=== PATIENT | female | born 1950 | race Caucasian/White ===

== ENCOUNTER 2018-01-27 09:43 | Day surgery (SDC) | payer OTHER, SELFPAY ==
[2018-01-18 15:59] VITALS: BMI 21.6
[2018-01-27 10:25] VITALS: BP 107/88; PULSE 80; RESP 18; TEMP 36.6; O2SAT 98
[2018-01-27 12:01] VITALS: O2SAT 99
--- NOTE | 2018-01-27 12:06 | HMH.PROC ---
[facility] Procedure Note Procedure Note:: Colonoscopy Procedure Report: Colonoscopy with submucosal injection of Eleview, snare cautery and cold snare polypectomy and Endo Clip placement Endoscopist: Jonnathan Pearson II, MD Referring physician: Lai Veliz MD Date of Procedure: January 27, 2018 Equipment: Olympus 180 variable stiffness pediatric colonoscope Sedation: MAC sedation Indication: Mrs. Arndt is a 67-year-old female who is here for initial screening colonoscopy. She does think that her maternal grandmother may have had colon cancer. She reports no abdominal pain, weight loss, change in her bowel habits or rectal bleeding. Procedure: Prior to the procedure, a history and physical exam was performed, and patient's medications and allergies were reviewed. The risks, benefits and alternatives of the sedation and procedure were discussed with the patient. All questions were answered and informed consent was obtained. The patient was brought to the procedure room. Patient identification and proposed procedure were verified by the physician and the nurse. The patient was placed in a left lateral decubitus position and the scope was passed under direct vision. Throughout the procedure, the patient's blood pressure, pulse, and oxygen saturations were monitored continuously. The colonoscopy was accomplished without difficulty. The patient tolerated the procedure well. Findings: On digital rectal examination there was normal rectal tone. There were no external hemorrhoids. The colonoscope was introduced through the anal canal to the rectum and advanced to the cecum. The ileocecal valve and appendiceal orifice were identified. The scope was advanced a short distance into the ileum which appeared grossly normal. The scope was then withdrawn into the colon. Within the cecum there was an 19-20 mm wider based polyp that was at the base of the cecum encompassing a very small portion of the appendiceal orifice. This was injected submucosally with 10 mL of Eleview to raise the polyp. Next, a 15 mm captivator snare was used to completely excise this large polyp via snare cautery. The edges of the post polypectomy site were coated with soft coagulation. 2 endoclips were placed over the post polypectomy site to provide closure. There was a second 6-7 mm polyp in the ascending colon removed via cold snare polypectomy. The remaining ascending, transverse, descending, sigmoid and rectum were grossly normal. There were no mucosal abnormalities identified. Upon retroflexion within the rectum there were grade 1-2 internal hemorrhoids with active cryptitis. Impression: 1. Large cecal polyp (19-20 mm) status post removal 2. Diminutive ascending polyp removed 3. Grade 1-2 internal hemorrhoids with active cryptitis Plan: I will follow up the polyp histology. The cecal polyp appears to be a more advanced adenomatous colon polyp. I will explain and follow-up pathology/histology which should help to determine surveillance interval. I would encourage fiber bulk supplementation on a maintenance basis.
[2018-01-27 12:40] VITALS: BP 74/42; PULSE 72; RESP 16; TEMP 36.7; O2SAT 92
--- NOTE | 2018-01-27 12:41 | P.PCN_ITS ---
[facility] Procedure Note Procedure Note:: Colonoscopy Procedure Report: Colonoscopy with submucosal injection of Eleview, snare cautery and cold snare polypectomy and Endo Clip placement Endoscopist: Jonnathan Pearson II, MD Referring physician: Lai Veliz MD Date of Procedure: January 27, 2018 Equipment: Olympus 180 variable stiffness pediatric colonoscope Sedation: MAC sedation Indication: Mrs. Arndt is a 67-year-old female who is here for initial screening colonoscopy. She does think that her maternal grandmother may have had colon cancer. She reports no abdominal pain, weight loss, change in her bowel habits or rectal bleeding. Procedure: Prior to the procedure, a history and physical exam was performed, and patient' s medications and allergies were reviewed. The risks, benefits and alternatives of the sedation and procedure were discussed with the patient. All questions were answered and informed consent was obtained. The patient was brought to the procedure room. Patient identification and proposed procedure were verified by the physician and the nurse. The patient was placed in a left lateral decubitus position and the scope was passed under direct vision. Throughout the procedure, the patient's blood pressure, pulse, and oxygen saturations were monitored continuously. The colonoscopy was accomplished without difficulty. The patient tolerated the procedure well. Findings: On digital rectal examination there was normal rectal tone. There were no external hemorrhoids. The colonoscope was introduced through the anal canal to the rectum and advanced to the cecum. The ileocecal valve and appendiceal orifice were identified. The scope was advanced a short distance into the ileum which appeared grossly normal. The scope was then withdrawn into the colon. Within the cecum there was an 19-20 mm wider based polyp that was at the base of the cecum encompassing a very small portion of the appendiceal orifice. This was injected submucosally with 10 mL of Eleview to raise the polyp. Next, a 15 mm captivator snare was used to completely excise this large polyp via snare cautery. The edges of the post polypectomy site were coated with soft coagulation. 2 endoclips were placed over the post polypectomy site to provide closure. There was a second 6-7 mm polyp in the ascending colon removed via cold snare polypectomy. The remaining ascending, transverse, descending, sigmoid and rectum were grossly normal. There were no mucosal abnormalities identified. Upon retroflexion within the rectum there were grade 1 -2 internal hemorrhoids with active cryptitis. Impression: 1. Large cecal polyp (19-20 mm) status post removal 2. Diminutive ascending polyp removed 3. Grade 1-2 internal hemorrhoids with active cryptitis Plan: I will follow up the polyp histology. The cecal polyp appears to be a more advanced adenomatous colon polyp. I will explain and follow-up pathology/ histology which should help to determine surveillance interval. I would encourage fiber bulk supplementation on a maintenance basis.
[2018-01-27 12:55] VITALS: BP 82/53; PULSE 80; O2SAT 95
[2018-01-27 13:21] VITALS: BP 93/60; PULSE 75; O2SAT 97
--- NOTE | 2018-01-27 15:03 | P.PN_ITS ---
[facility] Anesthesia Checklist - Structural Data Admitted From: Home Planned Operative Procedure/s: colonoscopy Consent for Planned Operative Procedure(s) Verified: Yes - Airway Assessment C-Spine Mobility Assessed: Yes TMJ Mobility Assessed: Yes Dentition: Good Dentition - Neurological Assessment Level of Consciousness: Awake, Alert - Anesthesia Plan Anesthesia Risk discussed: Yes Anesthesia Plan: Verified ASA Class: II Anesthesia Type: MAC [facility] Anesthesia HX I have reviewed the patient's past medical history: Yes Medical History: Reports:: Hyperlipidemia, Hypertension Denies:: Diabetes Mellitus Type 1, Diabetes Mellitus Type 2, Internal Pacemaker, Lung Disease, Seizures Other Surgeries: No: Pacemaker
== END 2018-01-27 13:21 | disposition home or self-care (01) ==
LOC: OUTP 09:45
PROVIDERS: PCP Internal Medicine; Visit Provider Internal Medicine Gastroenterology
PROC: 0DJD8ZZ Inspection of Lower Intestinal Tract, Via Natural or Artificial Opening Endoscopic (ICD-10-PCS; CPT 45378; principal; 2018-01-27 11:00)
DX: Z12.11 Encounter for screening for malignant neoplasm of colon (principal); K63.5 Polyp of colon; K62.89 Other specified diseases of anus and rectum; K64.0 First degree hemorrhoids
CPT/HCPCS: 45381; 45385

== ENCOUNTER → 2018-12-05 09:23 | Outpatient (CLI) | payer MEDICARE, SELFPAY ==
[2018-12-05 10:41] LABS: Basophils % 0.8 % (0.1-2.0); Eosinophils # 0.2 K/mm3 (0.0-0.4); Eosinophils % 3.3 % (0.1-12.0); Hematocrit 45.4 % (37.0-47.0); Lymphocytes # 1.6 K/mm3 (0.7-4.5); Lymphocytes % 30.8 % (10-50); Mean Corpuscular HGB Conc 33.1 g/dL (31.8-35.4); Mean Corpuscular Hemoglobin 30.9 pg (27.0-31.2); Mean Corpuscular Volume 93.5 fl (81-99); Mean Platelet Volume 6.8 fl (7.4-10.4); Monocytes # 0.3 K/mm3 (0.1-1.0); Monocytes % 6.4 % (1.7-9.3); Neutrophils % 58.7 % (37.0-80.0); Platelet Count 274 K/mm3 (142-424); Red Blood Count 4.85 M/mm3 (4.20-5.40); Red Cell Distribution Width 13.6 % (11.5-17.5); White Blood Count 5.1 K/mm3 (4.8-10.8)
[2018-12-05 11:18] LABS: Alanine Aminotransferase 25 U/L (12-78); Albumin Level 4.1 gm/dL (3.4-5.0); Albumin/Globulin Ratio 1.1 (1.1-1.8); Alkaline Phosphatase 73 U/L (46-116); Anion Gap 13.6 mEq/L (5-15); Bilirubin,Total 0.6 mg/dL (0.2-1.0); Blood Urea Nitrogen 19 mg/dL (7-18); Calcium 9.2 mg/dL (8.5-10.1); Carbon Dioxide 27 mmol/L (21.0-32.0); Chloride 104 mmol/L (98-107); Chol/HDL Ratio 2.6 (1-3.5); Cholesterol 179 mg/dL (140-200); Creatinine,Serum 1.25 mg/dL (0.55-1.02); Estimated Glomerular Filt Rate 43 ml/min (>60); GFR (African American) 52 ML/MIN (>60); Globulin 3.8 gm/dl (1.3-3.2); Glucose 86 mg/dL (74-106); HDL Cholesterol 69 mg/dL (29-89); LDL Cholesterol 91 mg/dL (0-130); Sodium 141 mmol/L (136-145); Thyroid Stimulating Hormone 6.64 uIU/ml (0.358-3.740); Total Protein,Serum 7.9 gm/dL (6.4-8.2); Triglycerides 96 mg/dL (30-200); VLDL Cholesterol 19 mg/dL (0-40)
[2018-12-05 11:19] LABS: Aspartate Amino Transferase 28 U/L (15-37); Potassium 3.6 mmoL/L (3.5-5.1)
== END ==
PROVIDERS: Visit Provider Internal Medicine
DX: I10 Essential (primary) hypertension (principal)
CPT/HCPCS: 36415; 80053; 80061; 84443; 85025

== ENCOUNTER → 2019-01-17 12:27 | Outpatient (CLI) | payer MEDICARE, SELFPAY ==
--- NOTE | 2019-01-17 | NVE_ITS ---
Venous Exam Indications: 729.5 Pain in limb. Pt fell January 04 edema and pain since then. IMPRESSIONS 1. There is no evidence of significant Reflux. 2. No evidence of deep or superficial vein thrombosis involving the left lower extremity History: Medications: Clopidogrel (Plavix) PO daily. Left lower extremity venous duplex evaluation. Doppler flow study including spectral analysis, color and lou scale imaging. Location: Vascular laboratory. Patient status: Outpatient. Tables: Venous flow and imaging: + +-------+ + Location Overall Flow properties + +-------+ + Left common femoral Patent Normal phasicity; spontaneous; normal augmentation; compressible + +-------+ + Left saphenofemoral junction Patent Compressible + +-------+ + Left profunda femoral Patent Compressible + +-------+ + Left femoral Patent Normal phasicity; spontaneous; normal augmentation; compressible + +-------+ + Left greater saphenous Patent Normal phasicity; spontaneous; normal augmentation; compressible + +-------+ + Left popliteal Patent Normal phasicity; spontaneous; normal augmentation; compressible + +-------+ + Left posterior tibial Patent Compressible + +-------+ + Left peroneal Patent Compressible + +-------+ + Left gastrocnemius Patent Compressible + +-------+ + Left soleal Patent Compressible + +-------+ + (Report amended ) Electronically signed by: Ronni Key [id number]
== END ==
PROVIDERS: PCP Internal Medicine; Visit Provider Internal Medicine
DX: M79.605 Pain in left leg (principal); M79.89 Other specified soft tissue disorders
CPT/HCPCS: 93971

== ENCOUNTER 2019-02-08 08:00 | Outpatient (RCR) | payer MEDICARE, SELFPAY | END 2019-02-08 08:05 | disposition home or self-care (01) | LOC: PT 08:00 | PROVIDERS: Visit Provider Internal Medicine | DX: I89.0 Lymphedema, not elsewhere classified (principal) | CPT/HCPCS: 97140; 97162 ==

== ENCOUNTER → 2019-07-10 12:28 | Outpatient (CLI) | payer MEDICARE, SELFPAY ==
--- NOTE | 2019-07-10 12:34 | MM_ITS ---
PROCEDURE: MM DIG MAMM BI DX W/CAD CLINICAL INDICATION: NEW LUMP LT breast COMPARISON: [facility] DIG MAMM-SCREEN ANTONETTE from 08/27/2013 DMDXUWAR DIG MAMM-DX UNI RT ADD VIEW from 09/18/2013 [facility] DIG MAMM-SCREEN ANTONETTE from 08/05/2016 US BREAST LT COMPLETE from 07/10/2019 TECHNIQUE: Standard images along with spot compression views and left breast ultrasound. FINDINGS: Average fibroglandular tissue. Palpable abnormality is reported in the medial aspect of the left breast with a marker placed at this region. No malignant appearing mass or malignant-appearing microcalcification is evident. There was some nodularity noted in the medial aspect of the left breast which did appear could to compress out as fibroglandular tissue. No distinct nodule is evident on the rolled views that would correspond to the palpable abnormality. Left breast ultrasound: At 10 o'clock there is a complex hypoechoic nodule measuring 5 mm this is hypoechoic but irregular in nature and corresponds to the palpable abnormality. This is just beneath the skin by approximately 4 mm. This may represent a complex cyst. The lesion is somewhat suspicious due to its hypoechoic nature and irregular appearance. Fine-needle aspiration is suggested. IMPRESSION: 5 mm irregular hypoechoic nodule corresponding to palpable abnormality which may be due to a complex cyst or even a small subcutaneous abscess. Suggest ultrasound-guided fine needle aspiration BI-RAD Category: 4 Suspicious Abnormality - Biopsy Considered FOLLOW-UP: BIO Biopsy Recommended (A letter has been sent to the patient regarding results of the study.) Dictated by: Ronni Key MD 07/19/2019 13:40 Electronically signed by Ronni Key MD in [place] 07/19/2019 13:40
== END ==
PROVIDERS: PCP Internal Medicine; Visit Provider Internal Medicine
DX: N63.21 Unspecified lump in the left breast, upper outer quadrant
CPT/HCPCS: 76641; 77066

== ENCOUNTER → 2019-08-16 07:45 | Outpatient (CLI) | payer MEDICARE, SELFPAY ==
--- NOTE | 2019-08-16 07:46 | CT_ITS ---
PROCEDURE: CT SINUS WO CON CLINICAL HISTORY: sinus cyst COMPARISON: [facility] CT CERVICAL SPINE W/O CONT from 09/16/2014 TECHNIQUE: Axial images obtained with sagittal and coronal reformats. All CT scans at the facility use one or more dose reduction, viz: automated exposure control, ma/kV adjustment per patient size (including targeted exams where dose is matched to indication, i.e. head), or iterative reconstruction technique. FINDINGS: No significant mucosal thickening or air-fluid levels are evident. There is a hyperdense 19 x 8 x 17 mm lesion within the floor the right maxillary sinus with involvement of the right maxillary alveolar ridge. This is a sclerotic/calcific lesion and is well-circumscribed. Differential diagnosis would include a cementoblastoma, osteoma, or cemento osseous dysplasia. No bony destruction evident. This lesion has developed since an older CT of the C-spine of 09/16/2017. IMPRESSION: 1. Sclerotic/calcific lesion of the floor the right maxillary sinus at 19 x 8 x 17 mm which may be due to a cementoblastoma, osteoma, or cemento osseous dysplasia 2. Otherwise negative Dictated by: Ronni Key MD 08/16/2019 18:33 Electronically signed by Ronni Key MD in [place] 08/16/2019 18:33
== END ==
PROVIDERS: PCP Internal Medicine; Visit Provider Otolaryngology
DX: J34.1 Cyst and mucocele of nose and nasal sinus (principal)
CPT/HCPCS: 70486

== ENCOUNTER → 2019-11-01 09:46 | Outpatient (CLI) | payer MEDICARE, SELFPAY ==
--- NOTE | 2019-11-01 09:53 | XR_ITS ---
PROCEDURE: XR KNEE RT 4V CLINICAL INDICATION: knee pain Medial right knee pain COMPARISON: [id number] XR knee LT 3V from 01/04/2019 FINDINGS: No fracture or dislocation. No lytic or blastic change. There is normal mineralization. The joint spaces are well-preserved. No significant degenerative/arthritic changes. No erosive changes evident. Other findings:There is a small suprapatellar effusion IMPRESSION: Small knee joint effusion otherwise negative Dictated by: Ronni Key MD 11/01/2019 13:33 Electronically signed by Ronni Key MD in [place] 11/01/2019 13:33
== END ==
PROVIDERS: PCP Internal Medicine; Visit Provider Orthopaedic Surgery
DX: M25.561 Pain in right knee (principal)
CPT/HCPCS: 73564

== ENCOUNTER → 2020-05-23 08:00 | Outpatient (CLI) | payer MEDICARE, SELFPAY ==
[2020-05-23 09:36] LABS: Basophils % 0.5 % (0.1-2.0); Eosinophils # 0.3 K/mm3 (0.0-0.4); Eosinophils % 4.4 % (0.1-12.0); Hematocrit 41.3 % (37.0-47.0); Hemoglobin 14.2 g/dL (12.2-16.2); Lymphocytes # 1.8 K/mm3 (0.7-4.5); Lymphocytes % 30.5 % (10-50); Mean Corpuscular HGB Conc 34.4 g/dL (31.8-35.4); Mean Corpuscular Hemoglobin 31.5 pg (27.0-31.2); Mean Corpuscular Volume 91.5 fl (81-99); Mean Platelet Volume 7.7 fl (7.4-10.4); Monocytes # 0.4 K/mm3 (0.1-1.0); Monocytes % 6.3 % (1.7-9.3); Neutrophils # 3.4 K/mm3 (1.8-7.8); Neutrophils % 58.3 % (37.0-80.0); Platelet Count 315 K/mm3 (142-424); Red Blood Count 4.51 M/mm3 (4.20-5.40); White Blood Count 5.9 K/mm3 (4.8-10.8)
[2020-05-23 10:11] LABS: Chloride 100 mmol/L (98-107); Potassium 3.8 mmoL/L (3.5-5.1); Sodium 139 mmol/L (136-145)
[2020-05-23 10:13] LABS: Alanine Aminotransferase 16 U/L (12-78); Anion Gap 16.8 mEq/L (5-15); Aspartate Amino Transferase 30 U/L (14-36); Blood Urea Nitrogen 24 mg/dl (7-17); Carbon Dioxide 26 mmol/L (22.0-30.0); Estimated Glomerular Filt Rate 49 ml/min (>60); GFR (African American) 60 ML/MIN (>60)
[2020-05-23 10:14] LABS: Albumin Level 4.3 g/dl (3.5-5.0); Albumin/Globulin Ratio 1.4 (1.1-1.8); Alkaline Phosphatase 67 U/L (38-126); Bilirubin,Total 0.5 mg/dl (0.2-1.3); Calcium 9.6 mg/dl (8.4-10.2); Chol/HDL Ratio 2.3 (1-3.5); Cholesterol 159 mg/dl (140-200); Glucose 90 mg/dl (74-100); HDL Cholesterol 68 mg/dl (40-60); Total Protein,Serum 7.3 g/dl (6.3-8.2); Triglycerides 152 mg/dl (30-150); VLDL Cholesterol 30 mg/dL (0-40)
[2020-05-23 10:25] LABS: Direct LDL Cholesterol 64.32 mg/dL (100-129)
[2020-05-23 10:42] LABS: Thyroid Stimulating Hormone 0.61 uIU/mL (0.465-4.68)
== END ==
PROVIDERS: Visit Provider Internal Medicine
DX: E78.5 Hyperlipidemia, unspecified; N18.3 Chronic kidney disease, stage 3 (moderate); E03.9 Hypothyroidism, unspecified; I12.9 Hypertensive chronic kidney disease with stage 1 through stage 4 chronic kidney disease, or unspecified chronic kidney disease
CPT/HCPCS: 36415; 80053; 80061; 84443; 85025

== ENCOUNTER → 2020-08-12 09:49 | Outpatient (CLI) | payer MEDICARE, SELFPAY ==
--- NOTE | 2020-08-12 10:00 | XR_ITS ---
PROCEDURE: XR CHEST 2V CLINICAL HISTORY: LT LATERAL CHEST PAIN COMPARISON: CT [facility] CT CHEST W/O CONTRAST from 09/16/2014 FINDINGS: The cardiomediastinal silhouette and pulmonary vascularity are within normal limits. The lungs are clear without infiltrates, suspicious nodules, or pleural effusions. There is a bone plate along the lower cervical spine. There is an implantable cardiac device in the interatrial septal region. Mild degenerative changes are present in the thoracic spine. IMPRESSION: No acute findings. Dictated by: Ronni Key MD 08/12/2020 10:25 Ronni Key MD in [place] 08/12/2020 10:25
== END ==
PROVIDERS: PCP Internal Medicine; Visit Provider Internal Medicine
DX: R07.89 Other chest pain (principal)
CPT/HCPCS: 71046

== ENCOUNTER → 2020-08-19 13:44 | Outpatient (CLI) | payer MEDICARE, SELFPAY ==
--- NOTE | 2020-08-19 13:46 | CT_ITS ---
PROCEDURE: CT CHEST WO CON CLINICAL INDICATION: L NEURALGIA TYPE PAIN left posterior chest pain neuralgia COMPARISON: CT [facility] CT CHEST W/O CONTRAST from 09/16/2014 TECHNIQUE: Axial images obtained with sagittal and coronal reformats. All CT scans at the facility use one or more dose reduction, viz: automated exposure control, ma/kV adjustment per patient size (including targeted exams where dose is matched to indication, i.e. head), or iterative reconstruction technique. FINDINGS: HEART AND MEDIASTINAL STRUCTURES: There is a metallic intracardiac implantable device between the right left atrium. Coronary artery calcifications are present. No mediastinal or hilar mass or adenopathy. LUNGS AND PLEURAL SPACES: There is mild biapical fibrotic change. Calcified granulomas are present within the left lower lobe. No suspicious pulmonary nodule. No effusion or infiltrate. BONY STRUCTURES: No obvious chest wall mass. There are few small nodes in the axilla. No dominant adenopathy. There is a small sclerotic focus in the left humeral head consistent with a bone island and a small lucent lesion of the right humeral head with a sclerotic rim consistent with the cortical defect or subchondral cyst. No acute bony findings are apparent. There are degenerative changes in the thoracic spine. Bone plate is present along the lower cervical spine anteriorly from prior anterior cervical disc fusion. UPPER ABDOMEN: Unremarkable. ADDITIONAL FINDINGS: At 1.7 cm hypodensity is present in the left kidney posteriorly consistent with a renal cyst. IMPRESSION: No acute thoracic pathology apparent. Nonspecific nonacute findings are present and described in detail above. Dictated by: Ronni Key MD 08/20/2020 09:43 Ronni Key MD in [place] 08/20/2020 09:43
== END ==
PROVIDERS: PCP Internal Medicine; Visit Provider Internal Medicine
DX: R07.89 Other chest pain (principal); M79.2 Neuralgia and neuritis, unspecified
CPT/HCPCS: 71250

== ENCOUNTER → 2022-01-15 07:42 | Outpatient (CLI) | payer MEDICARE, SELFPAY ==
[2022-01-15 08:23] LABS: Basophils # 0.1 K/mm3 (0-0.2); Basophils % 1.1 % (0.1-2.0); Eosinophils # 0.6 K/mm3 (0.0-0.4); Eosinophils % 9.6 % (0.1-12.0); Hematocrit 43.5 % (37.0-47.0); Hemoglobin 13.8 g/dL (12.2-16.2); Lymphocytes # 1.2 K/mm3 (0.7-4.5); Lymphocytes % 19.8 % (10-50); Mean Corpuscular HGB Conc 31.7 g/dL (31.8-35.4); Mean Corpuscular Hemoglobin 32.3 pg (27.0-31.2); Mean Corpuscular Volume 101.7 fl (81-99); Mean Platelet Volume 7.8 fl (7.4-10.4); Monocytes # 0.3 K/mm3 (0.1-1.0); Monocytes % 5.7 % (1.7-9.3); Neutrophils # 3.8 K/mm3 (1.8-7.8); Neutrophils % 63.8 % (37.0-80.0); Platelet Count 360 K/mm3 (142-424); Red Blood Count 4.28 M/mm3 (4.20-5.40); Red Cell Distribution Width 13.2 % (11.5-17.5)
[2022-01-15 09:57] LABS: Chloride 105 mmol/L (98-107); Potassium 4.2 mmoL/L (3.5-5.1); Sodium 141 mmol/L (136-145)
[2022-01-15 09:59] LABS: Alanine Aminotransferase 9 U/L (12-78); Aspartate Amino Transferase 24 U/L (14-36); Blood Urea Nitrogen 43 mg/dl (7-17); Estimated Glomerular Filt Rate 19 ml/min (>60); GFR (African American) 23 ML/MIN (>60)
[2022-01-15 10:00] LABS: Albumin Level 4.4 g/dl (3.5-5.0); Albumin/Globulin Ratio 1.5 (1.1-1.8); Alkaline Phosphatase 68 U/L (38-126); Anion Gap 13.2 mEq/L (5-15); Bilirubin,Total 0.4 mg/dl (0.2-1.3); Calcium 9.3 mg/dl (8.4-10.2); Carbon Dioxide 27 mmol/L (22.0-30.0); Chol/HDL Ratio 2.1 (1-3.5); Cholesterol 158 mg/dl (140-200); Globulin 2.9 g/dL (1.3-3.2); Glucose 94 mg/dl (74-100); HDL Cholesterol 77 mg/dl (40-60); Iron 68 ug/dL (37-170); Total Protein,Serum 7.3 g/dl (6.3-8.2); Triglycerides 82 mg/dl (30-150); VLDL Cholesterol 16 mg/dL (0-40)
[2022-01-15 10:16] LABS: Total Iron Binding Capacity 258 ug/dL (265-497)
[2022-01-15 10:33] LABS: Thyroid Stimulating Hormone 0.02 uIU/mL (0.465-4.68)
== END ==
PROVIDERS: Visit Provider Internal Medicine
DX: I10 Essential (primary) hypertension (principal); E78.5 Hyperlipidemia, unspecified; E03.9 Hypothyroidism, unspecified; N18.9 Chronic kidney disease, unspecified; D63.1 Anemia in chronic kidney disease; G43.909 Migraine, unspecified, not intractable, without status migrainosus
CPT/HCPCS: 36415; 80053; 80061; 83540; 83550; 84443; 85025

== ENCOUNTER 2022-02-26 09:37 | Day surgery (SDC) | payer MEDICARE, SELFPAY ==
[2022-02-26] VITALS (16 sets, daily range): BP systolic 119–172; BP diastolic 58–94; PULSE 77–98; RESP 16–18; TEMP 36.6–36.7; O2SAT 96–99; BMI 21.4
--- NOTE | 2022-02-26 | IR_ITS ---
APPROVED REPORT Patient Location: Outpatient [facility] Consultant: KARLA Wang RT (R) PROCEDURES Left heart catheterization Left ventriculogram Selective coronary angiogram INDICATION Unstable angina Informed consent was obtained prior to the procedure. COMPLICATIONS NONE Estimated Blood Loss: LESS THAN 10 ML TECHNIQUE One percent lidocaine used to anesthetize the right anterior aspect of the wrist. The right radial artery was accessed via the Seldinger technique. A 6 [place] sheath was placed in the right radial artery. 2.5 mg of verapamil, 800 mcg of nitroglycerin, 1mg Lidocaine and 5000 U Heparin were given through the arterial sheath. The papa catheter was also used to perform left heart catheterization, left ventriculogram and selective coronary angiogram. At the end of the procedure the sheath was removed good hemostasis was achieved using Traclet band, patient was transferred to the postop holding area in stable condition. ANGIOGRAPHIC RESULTS The left main artery Normal The left anterior descending artery Normal The circumflex artery Large dominant and normal. 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 Evaluation of noncardiac etiologies Electronically signed by : Lion Becerra MD 02/26/2022 14:11:07
--- NOTE | 2022-02-26 09:34 | ECG_ITS ---
APPROVED REPORT Exam: Resting ECG HR:96 bpm ECG Measurements Heart Rate 96 AXES AR 151 P 70 QRSd 89 QRS 40 QT 346 T 69 QTc 400 Conclusion SINUS RHYTHM NORMAL ECG UNCONFIRMED REPORT Electronically signed by : Herb Rivera MD 02/27/2022 09:05:37
--- NOTE | 2022-02-26 09:42 | XR_ITS ---
FINAL REPORT TECHNIQUE: Single view chest CLINICAL HISTORY: chest AND NECK pain FINDINGS: A single view of the chest was obtained. The heart and mediastinum are within normal limits. There are mild chronic changes at the lung bases. The lungs are otherwise clear. There is no pneumothorax. Osseous structures demonstrate postoperative changes of cervical fusion at the lower C-spine. IMPRESSION: No acute cardiopulmonary process. Reviewed, Interpreted and Dictated by Cholo Solo MD Transcribed by Nicole Joseph Authenticated by Cholo Solo MD on 02/26/2022 10:42:25 AM [facility]
--- NOTE | 2022-02-26 09:57 | PC.NURSE ---
rad at BS for portable xray
[2022-02-26 10:15] LABS: Chloride 104 mmol/L (98-107); Potassium 3.8 mmoL/L (3.5-5.1); Sodium 140 mmol/L (136-145)
[2022-02-26 10:18] LABS: Blood Urea Nitrogen 26 mg/dl (7-17); Creatinine Clearance Estimated 37 mL/min (50-200); Estimated Glomerular Filt Rate 37 ml/min (>60); GFR (African American) 45 ML/MIN (>60)
[2022-02-26 10:19] LABS: Anion Gap 15.8 mEq/L (5-15); Basophils # 0.2 K/mm3 (0-0.2); Calcium 9.9 mg/dl (8.4-10.2); Carbon Dioxide 24 mmol/L (22.0-30.0); Eosinophils # 0.3 K/mm3 (0.0-0.4); Eosinophils % 4.5 % (0.1-12.0); Glucose 105 mg/dl (74-100); Hematocrit 43.3 % (37.0-47.0); Hemoglobin 14.1 g/dL (12.2-16.2); Lymphocytes # 1.2 K/mm3 (0.7-4.5); Lymphocytes % 16.3 % (10-50); Mean Corpuscular HGB Conc 32.6 g/dL (31.8-35.4); Mean Corpuscular Volume 98.1 fl (81-99); Mean Platelet Volume 7.6 fl (7.4-10.4); Monocytes # 0.5 K/mm3 (0.1-1.0); Neutrophils # 5.2 K/mm3 (1.8-7.8); Neutrophils % 70.2 % (37.0-80.0); Platelet Count 300 K/mm3 (142-424); Red Blood Count 4.41 M/mm3 (4.20-5.40); Red Cell Distribution Width 14.9 % (11.5-17.5); White Blood Count 7.5 K/mm3 (4.8-10.8)
[2022-02-26 10:34] LABS: Troponin I < 0.01 ng/ml (0.00-0.034)
--- NOTE | 2022-02-26 10:45 | HMH.EDGENADL ---
ED Disposition Clinical Impression: Acute coronary syndrome Disposition: Still a Patient Condition on Discharge: Good Referrals: Lai Veliz [Primary Care Provider] - - Critical Care Critical Care Time: No Attestation: On 02/26/22, the high probability of a clinically significant, sudden or life threatening deterioration of the following system(s) required my full and direct attention, intervention and personal management. The time I documented below is in addition to time spent performing reported procedures but includes the following listed in this critical care notation. Medical Decision Making - Donovan Inquiry Pt receiving controlled substance: No Vital Signs: 02/26/22 09:37 Temperature 98.1 F Temperature Source Oral Pulse Rate [Radial] 98 H Respiratory Rate 16 Blood Pressure [Right Arm] 132/87 Blood Pressure Mean [Right Arm] 102 Blood Pressure Position [Right Arm] Sitting 02 Sat by Pulse Oximetry 98 Oxygen Delivery Method Room Air - Lab Data Lab Results 02/26/22 09:55: WBC 7.5, RBC 4.41, Hgb 14.1, Hct 43.3, MCV 98.1, MCH 32.0 H, MCHC 32.6, RDW 14.9, Plt Count 300, MPV 7.6, Neut % (Auto) 70.2, Lymph % (Auto) 16.3, Kane % (Auto) 7.0, Eos % (Auto) 4.5, Baso % (Auto) 2.0, Neut # (Auto) 5.2, Lymph # (Auto) 1.2, Kane # (Auto) 0.5, Eos # (Auto) 0.3, Baso # (Auto) 0.2 02/26/22 09:55: Sodium 140, Potassium 3.8, Chloride 104, Carbon Dioxide 24, Anion Gap 15.8 H, BUN 26 H, Creatinine 1.40 H, Estimated Creat Clear 37, Estimated GFR 37 L, Est GFR ( Amer) 45 L, Glucose 105 H, Calcium 9.9, Troponin I < 0.01 Result diagrams: 02/26/22 09:55 02/26/22 09:55 Orders (Tests/Meds): ED MEDICATIONS Discontinued Medications Generic Name Dose Route Start Last Admin Trade Name Freq PRN Reason Stop Dose Admin Aspirin 324 mg 02/26/22 09:43 02/26/22 09:45 Aspirin 81mg Chewable Tablet PO 02/26/22 09:44 324 mg ONCE ONE Administration Nitroglycerin 1 gm 02/26/22 10:02 02/26/22 10:04 Nitroglycerin 1 Gm Ointment TD 02/26/22 10:03 1 gm ONCE ONE Administration ORDERS Category Date Time Status Consult to Cardiology [CONS] Routine Cons 02/26/22 10:54 Active Troponin I Q3H Lab 02/26/22 12:45 Ordered Troponin I Q3H Lab 02/26/22 15:45 Ordered - Radiology Data #1 Image(s): Chest Image Reviewed: Yes I have reviewed radiologist's interpretation Procedure(s): XR chest portable Accession Number(s): [id number] cc: Cholo Solo MD; Lai Veliz ~ FINAL REPORT TECHNIQUE: Single view chest CLINICAL HISTORY: chest AND NECK pain FINDINGS: A single view of the chest was obtained. The heart and mediastinum are within normal limits. There are mild chronic changes at the lung bases. The lungs are otherwise clear. There is no pneumothorax. Osseous structures demonstrate postoperative changes of cervical fusion at the lower C-spine. IMPRESSION: No acute cardiopulmonary process. Reviewed, Interpreted and Dictated by Cholo Solo MD Transcribed by Nicole Joseph Authenticated by Cholo Solo MD on 02/26/2022 10:42:25 AM [facility] - ECG Data Tracing #1 EKG interpreted by Andrea Sams MD: Rhythm: sinus Rate: 96 [place]: normal Ectopy: none Conduction: normal ST Segment Changes: none T Wave Changes: none Q Waves: none No evidence of acute ischemia or injury Normal electrocardiogram - Physician Consults Physician Consulted: AFSHIN Zavala, for Dr. Becerra Time: 11:23 Reason -: Cardiology Eval/Care Comment/Response: He saw the patient in the emergency department and has made arrangements to take her to the [facility]. General Adult HPI - General Stated complaint: chest pain Time Seen by Provider: 02/26/22 10:46 - History of Present Illness HPI narrative: Awakened from sleep at about 1 AM with crushing precordial chest pain radiating into both sides of her neck. No shortness of breath, nausea, diaphoresis. She went to
--- NOTE | 2022-02-26 10:52 | PC.NURSE ---
entte aavlos called for consult
--- NOTE | 2022-02-26 11:00 | PC.NURSE ---
PT UPDATED ON PLAN OF CARE
--- NOTE | 2022-02-26 11:03 | PC.NURSE ---
pt sitting up in bed, reports no needs at this will continue to monitor
--- NOTE | 2022-02-26 11:05 | PC.NURSE ---
te reina notified of consult on pt at this time.
--- NOTE | 2022-02-26 11:15 | PC.NURSE ---
Mukund Mccray in with pt
--- NOTE | 2022-02-26 11:15 | PC.NURSE ---
te reina at BS
--- NOTE | 2022-02-26 11:24 | PC.NURSE ---
te reina states pt will be going to director of cardiac cath lab he has notified director of cardiac cath lab staff of pt.
[2022-02-26 11:34] LABS: Coronavirus 19, PCR Not Detected (NotDetected); Influenza A, PCR Not Detected (NotDetected); Influenza B, PCR Not Detected (NotDetected)
--- NOTE | 2022-02-26 11:55 | HMH.CNCARD ---
History of Present Illness Consult date: 02/26/22 Consult reason: chest pain Chief complaint: Chest pain Additional Medical History:: 1. Hypertension 2. Hyperlipidemia 3. Hypothyroidism, on replacement therapy 4. History of PFO and migraine recurrence, resolved with PFO occluder placement. 5. Family history of coronary artery disease in her younger brother History of present illness: Awakened from sleep at about 1 AM with crushing precordial chest pain radiating into both sides of her neck. No shortness of breath, nausea, diaphoresis. She went to work this morning and pain increased again so she came to the emergency room. Nitropaste applied in the emergency room and pain resolved, currently no pain. No prior history of cardiac disease except that she has a occluder for a valve problem from 2001. She has never had a heart catheter or stress test. She is a non-smoker. She does not have diabetes. She does have hypertension and hyperlipidemia. The above per RANGEL Strauss MD Patient does relate a recent significant decrease in her exercise tolerance from 6 miles a day down to 2 miles a day due to exertional shortness of breath and fatigue. Chest pain is a new symptom this AM. Chest pain would recur with ambulating less than 50 feet this morning. EKG is sinus rhythm with ST segment abnormalities inferiorly that are suspected to be early repolarization. Initial troponin is normal. [facility] History Medical History: Reports:: Hyperlipidemia, Hypertension Denies:: Diabetes Mellitus Type 1, Diabetes Mellitus Type 2, Internal Pacemaker, Lung Disease, MRSA, Seizures *Have you ever received a pneumonia vaccine?: Yes *Have you received a flu vaccine this season?: Yes Other Medical History: Reports: Other Laterality Cases: Bilateral: Other Other Surgeries: Yes: Appendectomy, Cholecystectomy, Colonoscopy, Hysterectomy-Total, Other. No: Pacemaker Amputation: No Fractures: No - *Social History Smoking Status: Never smoker Alcohol Intake: never Substance Use Type: denies use *Occupational Status:: employed *Travel in the last 8 weeks: Inside the [place] Family Hx:: No significant family history Meds Home Medications Medication Instructions Recorded Confirmed Type Clopidogrel Bisulfate [Plavix 75mg 75 mg PO DAILY 01/18/18 02/26/22 History Tab] Levothyroxine Sodium [Synthroid 100 mcg PO DAILY 01/18/18 02/26/22 History 75mcg (0.075mg) tablet] Rosuvastatin Calcium [Crestor] 40 mg PO DAILY 01/18/18 02/26/22 History Triamterene/Hydrochlorothiazid 1 each PO DAILY 01/18/18 02/26/22 History [Dyazide 37.5/25mg capsule] Amlodipine Besylate [Norvasc 5mg 5 mg PO DAILY 02/26/22 02/26/22 History tablet] Allergies Allergy/AdvReac Type Severity Reaction Status Date / Time butorphanol [From STADOL] Allergy Severe SLOW HEART Verified 11/01/19 11:01 RATE <10 Iodinated Contrast Media Allergy Intermediate I-RASH/ITCH Verified 11/01/19 11:01 [IODINATED CONTRAST MEDIA - ING IV DYE] morphine [MORPHINE] Allergy Intermediate I-HIVES Verified 11/01/19 11:01 Penicillins [PENICILLINS] Allergy Intermediate I-HIVES Verified 11/01/19 11:01 sumatriptan [From IMITREX] Allergy Intermediate I-RASH Verified 11/01/19 11:01 vancomycin [VANCOMYCIN] Allergy Intermediate I-RASH Verified 11/01/19 11:01 tuberculin, purified protein Allergy Unknown POSITIVE Verified 11/01/19 11:01 deriva PPD REACTOR [TUBERCULIN,PURIF.PROT.DERIV.] Exam Vital signs and Labs for Last 24 Hours: Temp Pulse Resp BP Pulse Ox 98.1 F 89 18 134/81 96 02/26/22 09:37 02/26/22 11:00 02/26/22 11:00 02/26/22 11:00 02/26/22 11:00 Laboratory Results - last 24 hr 02/26/22 09:55: WBC 7.5, RBC 4.41, Hgb 14.1, Hct 43.3, MCV 98.1, MCH 32.0 H, MCHC 32.6, RDW 14.9, Plt Count 300, MPV 7.6, Neut % (Auto) 70.2, Lymph % (Auto) 16.3, Hinds % (Auto) 7.0, Eos % (Auto) 4.5, Baso % (Auto) 2.0, Neut # (Auto) 5.2, Lymph # (Auto) 1.2, Mon
--- NOTE | 2022-02-26 12:37 | PC.NURSE ---
PT TO LEAD ENGINEER
--- NOTE | 2022-02-26 12:45 | PC.NURSE ---
pt to laborer pipeline
== END 2022-02-26 16:30 | disposition home or self-care (01) ==
LOC: ER 11:26 → CATHLAB 14:35
PROVIDERS: Emergency Provider Emergency Medicine; PCP Internal Medicine; Visit Provider Internal Medicine
DX: I25.110 Atherosclerotic heart disease of native coronary artery with unstable angina pectoris (principal); R07.9 Chest pain, unspecified; Z79.02 Long term (current) use of antithrombotics/antiplatelets; Z79.899 Other long term (current) drug therapy; I10 Essential (primary) hypertension; E78.5 Hyperlipidemia, unspecified; E03.9 Hypothyroidism, unspecified; Z20.822 Contact with and (suspected) exposure to COVID-19
CPT/HCPCS: 71045; 80048; 84484; 85025; 93005; 93458; 99152; 99285; C1725; C1769; C9803; J1644; Q9967; U0003; U0005

== ENCOUNTER → 2022-03-05 07:35 | Outpatient (CLI) | payer MEDICARE, SELFPAY ==
[2022-03-05 07:42] LABS: Microscopic, Urine URINE MICROSCOPIC (MICROSCOPIC)
[2022-03-05 08:31] LABS: Basophils # 0.1 K/mm3 (0-0.2); Basophils % 0.9 % (0.1-2.0); Eosinophils # 0.3 K/mm3 (0.0-0.4); Eosinophils % 5.3 % (0.1-12.0); Hemoglobin 12.6 g/dL (12.2-16.2); Lymphocytes # 1.8 K/mm3 (0.7-4.5); Lymphocytes % 27.4 % (10-50); Mean Corpuscular HGB Conc 33.3 g/dL (31.8-35.4); Mean Corpuscular Hemoglobin 32.6 pg (27.0-31.2); Mean Corpuscular Volume 97.8 fl (81-99); Mean Platelet Volume 8.1 fl (7.4-10.4); Monocytes # 0.5 K/mm3 (0.1-1.0); Monocytes % 7.4 % (1.7-9.3); Neutrophils # 3.9 K/mm3 (1.8-7.8); Platelet Count 390 K/mm3 (142-424); Red Blood Count 3.88 M/mm3 (4.20-5.40); Red Cell Distribution Width 14.8 % (11.5-17.5); White Blood Count 6.5 K/mm3 (4.8-10.8)
[2022-03-05 08:35] LABS: Albumin Level 4.2 g/dl (3.5-5.0); Anion Gap 14.6 mEq/L (5-15); Blood Urea Nitrogen 36 mg/dl (7-17); Calcium 9.4 mg/dl (8.4-10.2); Carbon Dioxide 24 mmol/L (22.0-30.0); Chloride 103 mmol/L (98-107); Estimated Glomerular Filt Rate 37 ml/min (>60); GFR (African American) 45 ML/MIN (>60); Glucose 96 mg/dl (74-100); Phosphorous 4.4 mg/dl (2.5-4.5); Potassium 3.6 mmoL/L (3.5-5.1); Sodium 138 mmol/L (136-145)
[2022-03-05 08:52] LABS: 25-OH Vitamin D, Total 124 ng/mL (30-100)
[2022-03-05 09:18] LABS: Appearance,Urine CLEAR (Clear); Bilirubin,Urine Negative (Negative); Blood, Urine Negative (Negative); Color,Urine YELLOW (Yellow); Glucose,Urine (UA) Negative (Negative); Ketones,Urine Negative (Negative); Leukocyte Esterase,Urine Negative (Negative); Nitrate,Urine Negative (Negative); Protein,Urine TRACE (Negative); Specific Gravity, Urine >= 1.030 (1.005-1.030); Urobilinogen,Urine 0.2 EU/dl (0.2)
[2022-03-05 09:30] LABS: Creatinine,Urine Random 196 mg/dL (Not Estab.)
[2022-03-05 09:37] LABS: Bacteria,Urine Trace /lpf
== END ==
PROVIDERS: Visit Provider Internal Medicine Nephrology
DX: N18.4 Chronic kidney disease, stage 4 (severe) (principal)
CPT/HCPCS: 36415; 80069; 81001; 82306; 82570; 83970; 84155; 85025

== ENCOUNTER → 2022-03-08 10:18 | Outpatient (POV) | payer MEDICARE, SELFPAY | PROVIDERS: Visit Provider Internal Medicine Nephrology | DX: Z00.00 Encounter for general adult medical examination without abnormal findings (principal) ==

== ENCOUNTER → 2022-03-16 09:27 | Outpatient (CLI) | payer MEDICARE, SELFPAY ==
--- NOTE | 2022-03-16 09:28 | CA_ITS ---
APPROVED REPORT EXAM: Comprehensive 2D, Doppler, and color-flow Echocardiogram Package Maker: Savannah Yanez RVT Ht: 5 ft 7 in Wt: 134lbs BSA: 1.71 BP: 131/86 mmHg Indications: CP,HTN,HLD,HX PFO CLOSURE 2D Dimensions IVSd 0.96 cm F: 0.6-1.0 LVEF (Visual) 58.00 % PWd 0.82 cm F: 0.6 - 1.0 LA Volume 31.70 mL LVDd 5.34 cm F: 3.9 - 5.3 LA Volume Index 18.64 mL/m2 (M/F) 16-34 LVDs 3.69 cm F: 2.2 - 3.5 LVOT 1.90 cm (M/F) 1.5-2.5 M-Mode Dimensions LA Diam 3.52 cm (1.9-4.0) Ao Diam 2.91 cm (2.0-3.7) TAPSE 2.76 (<1.7) LV Diastology E Decel Time 220.00 (160-240 msec) E/A Ratio 0.9 MED E' 6.50 (< 7 cm/sec) E'/MED E' Ratio 12.22 (>14) LAT E' 9.30 (<10 cm/sec) E/LAT E' Ratio 8.54 (>14) Aortic Valve AI PHT 705.00 ms AO Peak GR. 7.60 mmHg Mitral Valve MV E Max Mitch. 79.00 (40-130 cm/s) MV A Velocity 91.00 (40-130 cm/s) E/A Ratio 0.88 MV Decel. Time 220.00 (160-240 ms) MV PHT 64.00 ms Pulmonary Valve PV Peak Velocity 83.00 (50-150 cm/s) Tricuspid Valve TR P. Velocity 256.00 cm/s RAP Estimate 10.00 mmHg RVSP 36.30 mmHg Left Ventricle Left atrium is mildly enlarged, left ventricle is normal size, mild concentric left ventricular hypertrophy, estimated ejection fraction 45% with no regional wall motion abnormality, grade 1 diastolic dysfunction seen without tissue Doppler evidence of raise left atrial pressure. Right Ventricle Right atrium and right ventricle are normal size and contractility. Atria Intra-atrial septum appears to be intact, there is echodensity seen in the midportion of the intra-atrial septum there is no flow across the interatrial septum. Aortic Valve Aortic valve is minimally thickened and fibrosed there is no aortic stenosis, there is mild aortic insufficiency. Mitral Valve Mitral valve grossly normal, there is trace mitral regurgitation. Tricuspid Valve Tricuspid grossly normal, there is trace tricuspid regurgitation, tricuspid rotation jet velocity is inadequate for calculation of the right ventricular systolic pressure. Pulmonic Valve Pulmonic valve is poorly visualized. Great Vessels Aortic root is normal size. Inferior vena cava is poorly visualized. Pericardium No significant pericardial effusion noted. Conclusion 1. Mildly dilated, normal left ventricular size, mild concentric left ventricular hypertrophy, estimated ejection fraction 55% with no regional wall motion abnormality, grade 1 diastolic dysfunction seen without tissue Doppler evidence of raise left atrial pressure. 3. No flow across the interatrial septum. 3. Trace mitral and tricuspid regurgitation. 4. No significant pericardial effusion noted. Electronically signed by : Bj Campbell MD 03/16/2022 20:07:45
== END ==
PROVIDERS: PCP Internal Medicine; Visit Provider Physician Assistant
DX: E78.5 Hyperlipidemia, unspecified (principal); I10 Essential (primary) hypertension; Q28.9 Congenital malformation of circulatory system, unspecified; R07.9 Chest pain, unspecified; Z87.74 Personal history of (corrected) congenital malformations of heart and circulatory system
CPT/HCPCS: 93306

== ENCOUNTER → 2022-08-31 07:21 | Outpatient (CLI) | payer MEDICARE, SELFPAY ==
[2022-08-31 08:10] LABS: Basophils # 0.1 K/mm3 (0-0.2); Basophils % 1.2 % (0.1-2.0); Eosinophils # 0.2 K/mm3 (0.0-0.4); Eosinophils % 3.7 % (0.1-12.0); Hematocrit 42.3 % (37.0-47.0); Hemoglobin 13.6 g/dL (12.2-16.2); Lymphocytes # 1.9 K/mm3 (0.7-4.5); Lymphocytes % 32.9 % (10-50); Mean Corpuscular HGB Conc 32.2 g/dL (31.8-35.4); Mean Corpuscular Hemoglobin 32.6 pg (27.0-31.2); Mean Corpuscular Volume 101.3 fl (81-99); Mean Platelet Volume 7.9 fl (7.4-10.4); Monocytes # 0.4 K/mm3 (0.1-1.0); Monocytes % 7.2 % (1.7-9.3); Neutrophils # 3.1 K/mm3 (1.8-7.8); Platelet Count 378 K/mm3 (142-424); Red Blood Count 4.18 M/mm3 (4.20-5.40); Red Cell Distribution Width 14.2 % (11.5-17.5); White Blood Count 5.7 K/mm3 (4.8-10.8)
[2022-08-31 08:43] LABS: Alanine Aminotransferase 11 U/L (12-78); Albumin Level 4.8 g/dl (3.5-5.0); Albumin/Globulin Ratio 1.8 (1.1-1.8); Alkaline Phosphatase 74 U/L (38-126); Anion Gap 15.8 mEq/L (5-15); Aspartate Amino Transferase 27 U/L (14-36); Bilirubin,Total 0.6 mg/dl (0.2-1.3); Blood Urea Nitrogen 29 mg/dl (7-17); Calcium 10.5 mg/dl (8.4-10.2); Carbon Dioxide 32 mmol/L (22.0-30.0); Chloride 99 mmol/L (98-107); Chol/HDL Ratio 2.7 (1-3.5); Cholesterol 163 mg/dl (140-200); Estimated Glomerular Filt Rate 34 ml/min (>60); GFR (African American) 42 ML/MIN (>60); Globulin 2.7 g/dL (1.3-3.2); Glucose 81 mg/dl (74-100); HDL Cholesterol 60 mg/dl (40-60); Potassium 3.8 mmoL/L (3.5-5.1); Sodium 143 mmol/L (136-145); Total Protein,Serum 7.5 g/dl (6.3-8.2); Triglycerides 109 mg/dl (30-150); VLDL Cholesterol 22 mg/dL (0-40)
[2022-08-31 09:00] LABS: Direct LDL Cholesterol 60.17 mg/dL (100-129)
[2022-08-31 09:14] LABS: Thyroid Stimulating Hormone 0.25 uIU/mL (0.465-4.68)
== END ==
PROVIDERS: PCP Internal Medicine; Visit Provider Internal Medicine
DX: E03.9 Hypothyroidism, unspecified (principal); E78.5 Hyperlipidemia, unspecified; I10 Essential (primary) hypertension; N18.9 Chronic kidney disease, unspecified
CPT/HCPCS: 36415; 80053; 80061; 84443; 85025

== ENCOUNTER → 2023-04-04 09:07 | Outpatient (CLI) | payer MEDICARE, SELFPAY ==
[2023-04-04 09:55] LABS: Basophils % 0.6 % (0.1-2.0); Eosinophils # 0.2 K/mm3 (0.0-0.4); Eosinophils % 2.7 % (0.1-12.0); Hemoglobin 12.9 g/dL (12.2-16.2); Mean Corpuscular Hemoglobin 32.1 pg (27.0-31.2); Mean Corpuscular Volume 97.5 fl (81-99); Mean Platelet Volume 7.7 fl (7.4-10.4); Monocytes # 0.5 K/mm3 (0.1-1.0); Neutrophils # 3.7 K/mm3 (1.8-7.8); Neutrophils % 57.7 % (37.0-80.0); Platelet Count 382 K/mm3 (142-424); Red Cell Distribution Width 13.5 % (11.5-17.5); White Blood Count 6.4 K/mm3 (4.8-10.8)
[2023-04-04 10:28] LABS: Alanine Aminotransferase 10 U/L (12-78); Albumin Level 4.3 g/dl (3.5-5.0); Albumin/Globulin Ratio 1.4 (1.1-1.8); Alkaline Phosphatase 93 U/L (38-126); Amylase 90 U/L (30-110); Anion Gap 17.7 mEq/L (5-15); Aspartate Amino Transferase 20 U/L (14-36); Bilirubin,Total 0.5 mg/dl (0.2-1.3); Blood Urea Nitrogen 38 mg/dl (7-17); Carbon Dioxide 22 mmol/L (22.0-30.0); Chloride 102 mmol/L (98-107); Estimated Glomerular Filt Rate 16 ml/min (>60); GFR (African American) 19 ML/MIN (>60); Glucose 97 mg/dl (74-100); Potassium 3.7 mmoL/L (3.5-5.1); Sodium 138 mmol/L (136-145); Total Protein,Serum 7.3 g/dl (6.3-8.2)
[2023-04-04 11:32] LABS: Microscopic, Urine URINE MICROSCOPIC (MICROSCOPIC)
[2023-04-04 12:04] LABS: Appearance,Urine CLEAR (Clear); Bilirubin,Urine Negative (Negative); Blood, Urine Negative (Negative); Color,Urine YELLOW (Yellow); Glucose,Urine (UA) Negative (Negative); Ketones,Urine Negative (Negative); Leukocyte Esterase,Urine 2+ (Negative); Nitrate,Urine Negative (Negative); Protein,Urine Negative (Negative); Specific Gravity, Urine 1.015 (1.005-1.030); Urobilinogen,Urine 0.2 EU/dl (0.2)
[2023-04-04 12:28] LABS: Bacteria,Urine 2+ /lpf
== END ==
PROVIDERS: PCP Internal Medicine; Visit Provider Internal Medicine
DX: R10.13 Epigastric pain (principal); R11.2 Nausea with vomiting, unspecified
CPT/HCPCS: 36415; 80053; 81001; 82150; 85025; 87086

== ENCOUNTER 2023-11-29 12:35 | Outpatient (CLI) | payer MEDICARE, SELFPAY ==
--- NOTE | 2023-11-29 13:13 | US_ITS ---
FINAL REPORT CLINICAL HISTORY: NUMBNESS/PAIN BILATERAL HANDS,COLOR CHANGE HANDS,HTN,HLD COMPARISON: None FINDINGS: WRIST-BRACHIAL PRESSURE INDICES Pressure indices are as follows: RIGHT UPPER EXTREMITY: Wrist-brachial pressure index: 1.1 Comments: Normal LEFT UPPER EXTREMITY: Wrist-brachial pressure index: 1.1 Comments: Normal IMPRESSION: No evidence of significant obstructive peripheral vascular disease of the upper extremities Reviewed, Interpreted and Dictated by Shayne Travis III, MD Transcribed by Krystin Campos Authenticated and [facility]
[2023-11-29 13:16] LABS: Basophils % 0.4 % (0.1-2.0); Eosinophils # 0.3 K/mm3 (0.0-0.4); Eosinophils % 3.9 % (0.1-12.0); Hemoglobin 11.5 g/dL (12.2-16.2); Lymphocytes # 1.1 K/mm3 (0.7-4.5); Lymphocytes % 17.3 % (10-50); Mean Corpuscular HGB Conc 32.7 g/dL (31.8-35.4); Mean Corpuscular Hemoglobin 36.5 pg (27.0-31.2); Mean Corpuscular Volume 111.6 fl (81-99); Mean Platelet Volume 7.5 fl (7.4-10.4); Monocytes # 0.2 K/mm3 (0.1-1.0); Monocytes % 3.7 % (1.7-9.3); Neutrophils # 4.8 K/mm3 (1.8-7.8); Neutrophils % 74.7 % (37.0-80.0); Platelet Count 309 K/mm3 (142-424); Red Blood Count 3.14 M/mm3 (4.20-5.40); White Blood Count 6.4 K/mm3 (4.8-10.8)
[2023-11-29 13:59] LABS: Erythrocyte Sedimentation Rate 24 mm/hr (0-30)
[2023-11-29 14:21] LABS: Chloride 109 mmol/L (98-107); Potassium 3.8 mmoL/L (3.5-5.1); Sodium 139 mmol/L (136-145)
[2023-11-29 14:23] LABS: Blood Urea Nitrogen 39 mg/dl (7-17); Estimated Glomerular Filt Rate 22 ml/min (>60); GFR (African American) 27 ML/MIN (>60)
[2023-11-29 14:24] LABS: Alanine Aminotransferase 13 U/L (12-78); Albumin Level 4.2 g/dl (3.5-5.0); Albumin/Globulin Ratio 1.4 (1.1-1.8); Alkaline Phosphatase 59 U/L (38-126); Anion Gap 8.8 mEq/L (5-15); Aspartate Amino Transferase 26 U/L (14-36); Bilirubin,Total 0.6 mg/dl (0.2-1.3); Calcium 9.4 mg/dl (8.4-10.2); Carbon Dioxide 25 mmol/L (22.0-30.0); Chol/HDL Ratio 3.3 (1-3.5); Cholesterol 168 mg/dl (140-200); Glucose 93 mg/dl (74-100); HDL Cholesterol 51 mg/dl (40-60); Total Protein,Serum 7.2 g/dl (6.3-8.2); Triglycerides 94 mg/dl (30-150); VLDL Cholesterol 19 mg/dL (0-40)
[2023-11-29 15:24] LABS: Direct LDL Cholesterol 81.09 mg/dL (100-129)
[2023-11-29 16:23] LABS: Folate > 20.00 ng/mL; Vitamin B12 < 159 pg/mL (239-931)
[2023-11-30 17:07] LABS: Alpha-1-Globulin 0.3 g/dL (0.0-0.4); Alpha-2-Globulin 0.8 g/dL (0.4-1.0); Gamma Globulin 1.4 g/dL (0.4-1.8); Protein, Total 7.2 g/dL (6.0-8.5)
[2023-12-02 11:17] LABS: Antinuclear Antibodies, IFA POSITIVE; PDF SCANNED IMAGE
== END 2023-11-29 23:59 ==
PROVIDERS: PCP Internal Medicine; Visit Provider Internal Medicine
DX: I10 Essential (primary) hypertension; R09.89 Other specified symptoms and signs involving the circulatory and respiratory systems; M79.622 Pain in left upper arm; M79.621 Pain in right upper arm
CPT/HCPCS: 36415; 80053; 80061; 82607; 82746; 83655; 84155; 84165; 84443; 85025; 85651; 86038; 93923

== ENCOUNTER 2025-09-10 09:15 | Outpatient (CLI) | payer MEDICARE, SELFPAY ==
[2025-09-10 15:59] LABS: Hematocrit 43.3 % (37.0-47.0); Hemoglobin 14.2 g/dL (12.2-16.2); Immature Granulocytes % 0.3 %; Mean Corpuscular HGB Conc 32.8 g/dL (31.8-35.4); Mean Corpuscular Hemoglobin 29.8 pg (27.0-31.2); Mean Corpuscular Volume 90.8 fl (81-99); Nucleated Red Blood Cells % 0 %; Platelet Count 319 K/mm3 (142-424); Red Blood Count 4.77 M/mm3 (4.20-5.40); Red Cell Distribution Width-SD 46.7 fL; White Blood Count 6.4 K/mm3 (4.8-10.8)
[2025-09-10 16:19] LABS: Albumin Level 4.6 g/dl (3.5-5.0); Chloride 103 mmol/L (98-107); Sodium 144 mmol/L (136-145)
[2025-09-10 16:20] LABS: Potassium 4.1 mmoL/L (3.5-5.1)
[2025-09-10 16:22] LABS: Alanine Aminotransferase 12 U/L (12-78); Albumin/Globulin Ratio 1.5 (1.1-1.8); Anion Gap 21.1 mEq/L (5-15); Aspartate Amino Transferase 35 U/L (14-36); Blood Urea Nitrogen 32 mg/dl (7-17); Carbon Dioxide 24 mmol/L (22.0-30.0); Creatinine,Serum 1.80 mg/dl (0.52-1.04); Estimated Glomerular Filt Rate 28 ml/min (>60); GFR (African American) 33 ML/MIN (>60); Globulin 3.0 g/dL (1.3-3.2); Total Protein,Serum 7.6 g/dl (6.3-8.2)
[2025-09-10 16:23] LABS: Alkaline Phosphatase 71 U/L (38-126); Bilirubin,Total 0.6 mg/dl (0.2-1.3); Calcium 9.5 mg/dl (8.4-10.2); Cholesterol 166 mg/dl (140-200); Glucose 66 mg/dl (74-100); HDL Cholesterol 85 mg/dl (40-60); Triglycerides 64 mg/dl (30-150)
[2025-09-10 16:53] LABS: Thyroid Stimulating Hormone 0.49 uIU/mL (0.465-4.68)
[2025-09-10 18:14] LABS: Vitamin B12 279 pg/mL (239-931)
--- OUTSIDE RECORDS SUMMARY | 2025-09-11 12:58 | XMS_ITS | Clinical Summary ---
Author Organization [facility] Address [address] [place] [address] Care Team Providers Care Kiss Setter Hand Name Role Phone Lai Veliz MD Primary Care Provider [phone] Allergies Active Allergy Reactions Criticality Noted Date Comments Butorphanol Unknown - Patient states they do not know rxn details Low 09/14/2005 Iv Contrast Unknown - Patient states they do not know rxn details Low 09/14/2005 patient is allergic to ivp contrast Morphine Hives,Rash Medium 09/14/2005 Penicillins Hives,Rash Medium 09/14/2005 Tuberculin Purified Protein Derivative Unknown - Patient states they do not know rxn details Low 09/14/2005 Vancomycin Unknown - Patient states they do not know rxn details Low 09/14/2005 Medications cholecalciferol (Vitamin D-3) 50 MCG (1999 UT) tablet 1 (one) time each day. 05/13/2016 Active clopidogrel (Plavix) 75 MG tablet Take by mouth 1 (one) time each day. 09/02/2014 Active levothyroxine (Synthroid, Levoxyl) 100 MCG tablet TAKE 1 TABLET DAILY. 02/07/2017 Active potassium chloride CR (Klor-Con M20) 20 MEQ ER tablet TAKE 1 TABLET DAILY. 05/13/2016 Active rosuvastatin (Crestor) 10 MG tablet TAKE 1 TABLET DAILY. 09/02/2014 Active topiramate (Topamax) 100 MG tablet TAKE 1 TABLET AT BEDTIME. 09/02/2014 Active topiramate 50 MG tablet TAKE 1 TABLET DAILY. 09/02/2014 Active triamterene-hyd roCHLOROthiazid e (Dyazide) 37.5-25 MG capsule TAKE 1 CAPSULE DAILY. 07/13/2016 Active amLODIPine (Norvasc) 5 MG tablet Take by mouth 1 (one) time each day. Active Loratadine-Pseu doephedrine (CLARITIN-D 24 HOUR PO) Take by mouth if needed. Active Active Problems Problem Noted Date Diagnosed Date Osteopenia 03/06/2015 Essential (primary) hypertension 03/06/2015 Chronic kidney disease, stage IV (severe) 2013 Hypothyroidism 09/02/2014 Family History Medical History Relation Name Comments Cancer Father Heart disease Father Hyperlipidemia Father Hypertension Father Kidney cancer Father Anemia Mother Arthritis Mother Hyperlipidemia Mother Hypertension Mother Stroke Mother Relation Name Status Comments Father Mother Social History Tobacco Use Types Packs/Day Years Used Date Smoking Tobacco: Never Smokeless Tobacco: Never Alcohol Use Standard Drinks/Week Comments Not Currently 0 (1 standard drink = 0.6 oz pur e alcohol) Comments Unknown Sex and Gender Information Value Date Recorded Sex Assigned at Not on file Legal Sex Female 8:53 PM EDT Gender Identity Not on file Sexual Orientation Not on file Last Filed Vital Signs Vital Sign Reading Time Taken Comments Blood Pressure 138/80 03/08/2022 10:48 AM EDT Pulse 66 03/08/2022 10:48 AM EDT Temperature - - Respiratory Rate - - Oxygen Saturation - - Inhaled Oxygen Concentration - - Weight 61.5 kg (135 lb 9.6 oz) 03/08/2022 10:48 AM EDT Height 170.2 cm (5' 7 ) 03/08/2022 10:48 AM EDT Body Mass Index 21.24 03/08/2022 10:48 AM EDT Plan of Treatment Health Maintenance Due Date Last Done Comments [facility]-Bone Density Scan 1952 [facility]-Depression Screening 1952 [facility]-Infant/Child/Adol SDOH Screenings 1950 [facility]- SDOH Screenings 1970 [facility]-Adult SDOH Screenings 1970 [facility]-DTaP,Tdap,and Td Vaccines (1 - Tdap) 1971 CT Colonography 1997 Colonoscopy 1997 FIT-DNA 1997 FIT 1997 FOBT 1997 Sigmoidoscopy 1997 [facility]-Colorectal Cancer Screening 1997 [facility]-Zoster Vaccines (1 of 2) 2002 [facility]-Pneumococcal Vaccine: 50+ Years (2 of 2 - PCV20 or PCV21) 07/16/2021 07/16/2020 [id number] Vaccine (5 - 2024- season) 2025 02/03/2022, 08/21/2021, 11/19/2020, Additional history exists [facility]-Influenza Vaccine (#1) 2025 07/22/2021, [facility]-RSV Vaccine: 60+ Years or (1 - 1-dose 75+ series) 2027 HPV Vaccines Aged Out No longer eligi ble based on patient's age to complete this topic [facility]-HIB Vaccines Aged Out No longer e ligible based on patient's age to complete this topic [facility]-Hepatitis A Vaccines Aged Out No longer eligible based on patient's age to complete this topic [facility]-IPV Vaccines Aged Out No longer e ligible based on patient's age to complete this topic [facility]-Rotavirus Vaccines Aged Out No lo nger eligible based on patient's age to complete this [place] [address] [place] [id number] Care Teams Kiss Setter Hand Relationship Specialty Start Date End Date Lai Veliz MD [address] [place] [address] PCP - General 03/03/22
== END 2025-09-10 23:59 ==
LOC: LAB.DROPOF 09-11 11:46
PROVIDERS: PCP Internal Medicine; Visit Provider Internal Medicine
DX: E78.2 Mixed hyperlipidemia (principal); I10 Essential (primary) hypertension; E03.9 Hypothyroidism, unspecified; E53.8 Deficiency of other specified B group vitamins
CPT/HCPCS: 80053; 80061; 82607; 84443; 85025